=== PATIENT | female | born 1955 | race Caucasian/White ===

== ENCOUNTER 2018-06-08 13:00 | Outpatient (RCR) | payer OTHER | END 2018-06-11 | LOC: PT 13:00 | PROVIDERS: ATTEND Specialist | DX: S42.295D Other nondisplaced fracture of upper end of left humerus, subsequent encounter for fracture with routine healing (principal); M25.512 Pain in left shoulder; M25.612 Stiffness of left shoulder, not elsewhere classified; S93.401D Sprain of unspecified ligament of right ankle, subsequent encounter; M62.81 Muscle weakness (generalized) ==

== ENCOUNTER 2018-07-06 15:00 | Outpatient (RCR) | payer OTHER | END 2018-07-11 | LOC: PT 15:00 | PROVIDERS: ATTEND Specialist | DX: S42.295D Other nondisplaced fracture of upper end of left humerus, subsequent encounter for fracture with routine healing (principal); M25.512 Pain in left shoulder; M25.612 Stiffness of left shoulder, not elsewhere classified; S93.401D Sprain of unspecified ligament of right ankle, subsequent encounter; M62.81 Muscle weakness (generalized) | CPT/HCPCS: 97139 ==

== ENCOUNTER 2018-07-13 15:01 | Outpatient (RCR) | payer OTHER | END 2018-08-11 | LOC: PT 15:01 | PROVIDERS: ATTEND Specialist | DX: S42.295D Other nondisplaced fracture of upper end of left humerus, subsequent encounter for fracture with routine healing (principal); M25.512 Pain in left shoulder; M25.612 Stiffness of left shoulder, not elsewhere classified; M62.81 Muscle weakness (generalized); S93.401D Sprain of unspecified ligament of right ankle, subsequent encounter ==